=== PATIENT | male | born 1985 | race Caucasian/White ===

== ENCOUNTER 2023-08-12 07:15 | Day surgery (SDC) | payer OTHER ==
[2023-08-12] MEDS: LACTATED RINGERS 1,000 ML IV ONE ×3 (07:16→09:32)
--- NOTE | 2023-08-12 07:57 | ANESTHESIA ---
Pre-Anesthesia VS, & Labs - Diagnosis desires sterilization - Procedure elective sterilization Vital Signs: Temp Pulse Resp BP Pulse Ox O2 Flow Rate 36.7 C 72 20 127/86 H 100 0 08/12/23 07:31 08/12/23 07:31 08/12/23 07:31 08/12/23 07:31 08/12/23 07:31 08/12/23 07:31 Height: 5 ft 9 in Weight (kg): 112 kg Body Mass Index: 36.4 BMI Classification: Obese - NPO >8 hours Home Medications and Allergies Cholecalciferol [Vitamin D3] 1,000 units PO DAILY 06/17/23 Allergies/Adverse Reactions: Allergies Allergy/AdvReac Type Severity Reaction Status Date / Time No Known Drug Allergies Allergy Verified 06/17/23 11:09 Anes History & Medical History - Anesthetic History Anesthesia Complications: reports: No previous complications - Medical History Cardiovascular: reports: High cholesterol Pulmonary: reports: None Gastrointestinal: reports: None Urinary: reports: None Musculoskeletal: reports: None Endocrine/Autoimmune: reports: None Skin: reports: None Smoking Status: Former smoker Psychosocial: reports: Alcohol (few a week) Exam Dental: WNL Mouth Opening: Greater than 4 Fingerbreadths Neck Mobility: Normal Mallampati classification: II Thyromental Distance: greater than 6 cm Respiratory: Lungs clear Cardiovascular: Regular rate Plan Anesthesia Type: Total IV Consent for Procedure(s) Verified and Reviewed: Yes Code Status: Attempt Resuscitation ASA classification: 2-Mild systemic disease Is this case an emergency?: No
[2023-08-12] MEDS ORDERED: fentaNYL 100 MCG/2 ML VIAL IVP PRN (07:59)
[2023-08-12] MEDS ORDERED: HYDROmorphone 0.5 MG/0.5 ML SYRINGE IVP PRN (07:59)
[2023-08-12] MEDS ORDERED: METOCLOPRAMIDE 10 MG/2 ML VIAL IVP PRN (07:59)
[2023-08-12] MEDS ORDERED: ATROPINE ABBOJECT 1 MG/10 ML SYRINGE IVP PRN (07:59)
[2023-08-12] MEDS ORDERED: ONDANSETRON 4 MG/2 ML VIAL IVP PRN (07:59)
[2023-08-12] MEDS ORDERED: MORPHINE 2 MG/ML CARPUJECT IVP PRN (07:59)
[2023-08-12] MEDS ORDERED: ePHEDrine 50 MG/ML VIAL IVP PRN (07:59)
[2023-08-12] MEDS ORDERED: NALOXONE 0.4 MG/ML VIAL IVP PRN (07:59)
[2023-08-12] MEDS ORDERED: LACTATED RINGERS 1,000 ML IV SCH (08:00)
[2023-08-12] MEDS: LIDOCAINE 1% 50 ML MDV SUBQ ONE ×2 (08:34)
--- NOTE | 2023-08-12 09:05 | Discharge Plan ---
Discharge Plan Problem Reviewed?: Yes Disposition: 01 Home, Self Care Condition: Good Diet: Regular Activity Restrictions: Additional Comments (as instructed) Shower Restrictions: No Driving Restrictions: No Instruction Topics: Vasectomy No Scalpel No Smoking: If you smoke, Please STOP! Call for help.
--- NOTE | 2023-08-12 09:05 | OPERATIVE REPORT ---
Operative Report - General Procedure Date: 08/12/23 Planned Procedure: Bilateral vasectomy Pre-Op Diagnosis: elective sterilization Procedure Performed: Bilateral vasectomy Post Op Diagnosis: elective sterilization - Procedure Note Primary Surgeon: Kp Anesthesia Provider: BRONSON Davies Anesthesia Technique: General LMA Pathology: none Estimated Blood Loss (mL): 0 Findings: Tight right side - Other Other Information/Narrative: After informed consent was obtained the patient was brought to the OR and laid the supine position. Patient was anesthetized per anesthesia protocols and prepped draped in usual sterile fashion. A formal timeout was performed reconfirming the patient and procedure Local was instilled into the right hemiscrotum after isolating the vas deferens. Using a sharp mosquito we dissected the scrotal skin away and then used a loop grasper to identify the vas deferens and grasp it. This was quite challenging and eventually we actually had to make a second incision slightly more inferior to grasp of the vas better. After grasping the vas we incised the vas sheath and delivered the vas deferens itself. This was cauterized on both ends and a small segment was removed. The ends were suture-ligated with 4-0 chromic suture. A fascial interposition stitch was placed. The skin incisions were both closed with 4-0 chromic suture. The left side was then approached and again local was instilled and using a mosquito dissector we were able to gently open up the skin we identified the vas deferens using a loop grasper and then we were able to incise the vaginal sheath and identified the vas deferens which was then cauterized and divided. This was also suture-ligated. A fascial interposition stitch was placed. The skin was closed using 4-0 chromic suture. This include the procedure and the patient tolerated procedure well. All counts were correct
[2023-08-12] MEDS: HYDROcod/ACETAM 5/325 MG TABLET PO PRN (09:33)
--- NOTE | 2023-08-12 10:08 | ANESTHESIA POST OP EVALUATION ---
Anesthesia Post Eval - Post Anesthesia Eval Vitals: Last Vital Signs Temp 36.3 C L 08/12/23 09:30 Pulse 69 08/12/23 09:40 Resp 16 08/12/23 09:40 BP 125/86 H 08/12/23 09:40 Pulse Ox 99 08/12/23 09:40 O2 Flow Rate 0 08/12/23 07:31 CV Function Including HR & BP: Stable Pain Control: Satisfactory Nausea & Vomiting: Negative Mental Status: Baseline Respiratory Status: Airway Patent Hydration Status: Satisfactory Anesthesia Complications: None
[2023-08-12 10:13] VITALS: BP 125/86; O2SAT 99
== END 2023-08-12 07:16 | disposition home or self-care (01) ==
LOC: OR 07:15
PROVIDERS: ATTEND Urology
DX: Z30.2 Encounter for sterilization (principal); Z87.891 Personal history of nicotine dependence

== ENCOUNTER 2023-09-19 12:26 | Outpatient (CLI) | payer OTHER ==
--- NOTE | 2023-09-19 13:17 | Sleep Patient Instructions ---
Sleep Center Visit Summary - Patient Visit Information Reason for Visit: Initial consult for evaluation of sleep disordered breathing and other sleep issues. - Patient Instructions Instructions Attached: Sleep Study Additional Instructions: You will be completing a sleep study, either an in-lab polysomnography (PSG) or home sleep study (HST). You will follow-up in the sleep care office after the sleep study is completed to hear the results and talk about therapy, if needed. You will be called by our office staff to schedule this appointment, but you may contact us with any questions. - Clinic Information Contact: [facility] [address] [place] [address] [email or web address] T: [phone]
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
[2023-09-19 13:28] VITALS: BP 145/89; O2SAT 98
== END 2023-09-19 12:27 | disposition home or self-care (01) ==
LOC: SC 12:26
PROVIDERS: ATTEND Nurse Practitioner Family
DX: R06.83 Snoring (principal); R06.81 Apnea, not elsewhere classified; E66.9 Obesity, unspecified; Z68.38 Body mass index [BMI] 38.0-38.9, adult
CPT/HCPCS: 99203; 99212

== ENCOUNTER 2023-10-07 20:17 | Outpatient (CLI) | payer OTHER | END 2023-10-07 20:18 | disposition home or self-care (01) | LOC: SC 20:17 | PROVIDERS: ATTEND Nurse Practitioner Family | DX: G47.33 Obstructive sleep apnea (adult) (pediatric) (principal); E66.9 Obesity, unspecified; Z68.37 Body mass index [BMI] 37.0-37.9, adult | CPT/HCPCS: 95810 ==

== ENCOUNTER 2023-10-23 11:16 | Outpatient (CLI) | payer OTHER ==
--- NOTE | 2023-10-23 11:40 | Sleep Patient Instructions ---
Sleep Center Visit Summary - Patient Visit Information Reason for Visit: Sleep study follow-up - Patient Instructions Instructions Attached: CPAP Additional Instructions: You are being started on CPAP therapy with pressure setting at 4-15 cmH2O. You will need to call the sleep care office to set up your follow up once you have your CPAP machine to check compliance and response to therapy at that time. You may call the office with any concerns about pressure feeling too low or too much for adjustment, if needed. You should contact DME supplier for any questions or concerns about mask or equipment. Please call office to schedule a follow up appointment in the sleep care office one month after obtaining new device. - Clinic Information Contact: [facility] [address] [place] [address] [email or web address] T: [phone]
--- NOTE | 2023-10-23 11:44 | SLEEP CARE CONSULTATION ---
Information from patient questionnaire entered by Lila Meza. I have reviewed and concur with the information entered by Lila Meza. This document represents the service I personally performed and the decisions made by me, Mariana Amador ARNP. History of Present Illness Service Date and Time: 10/23/2023 1116 Initial [place] Sleepiness Scale score: 7 (09/18/23) Current [place] Sleepiness Scale score: 14 (10/23/23) Additional HPI information: GIANCARLO RAYMOND returns for follow up and results of the recently performed polysomnography. The sleep study done on 10/07/2023 showed moderate obstructive sleep apnea with an average AHI of 19 and mariana oxygen saturation of 81%. I explained the pathophysiology behind obstructive sleep apnea. We then spent quite a bit of time discussing different treatment options. For mild obstructive sleep apnea, surgery and oral appliance are alternatives to nasal CPAP therapy but in moderate or severe cases, nasal CPAP is the most effective and reliable treatment. I reviewed the impact of weight changes on sleep apnea and strongly recommended losing weight. After some discussion, the patient opted to go with the nasal CPAP therapy. Nasal autoCPAP set at 4-15 cmH20 will be ordered with rationale explained. A manual titration study will be ordered if unable to find optimal pressure with office adjustments. I explained how CPAP machine works and what to expect when using the machine. Using CPAP every night in order to get used to it was emphasized. Patient advised to put CPAP mask on before getting into bed so as not to fall asleep without CPAP. To assist acclimation to CPAP use, it could also be used for a short time during day while reading or watching TV. The patient was instructed to call the CPAP supplier to discuss any mechanical problem that may occur. If the mask given is uncomfortable or is difficult to keep on through the night even with adjustment, contact the CPAP supplier as many will replace with another mask style if notified before 30 days. If snoring or perceives is not getting enough air or too much air from the machine, notify this office. Patient counseled not drink alcohol less than 4 hours before bedtime as it can increase snoring and apnea. Patient was cautioned about risks of drowsy driving until sleepiness symptoms resolve. Patient denies drowsy driving. Sleep Study - Results Type of Sleep Study: Polysomnography (COMPLETED 10/07/23) Prior sleep studies: No Polysomnography/Home Sleep Study results: IMPRESSION: The quality of the study is good. The patient had normal sleep efficiency. The sleep architecture was abnormal for sleep fragmentation and reduced amount of time spent in slow wave sleep (N3). Respiratory monitoring showed moderate obstructive sleep apnea-hypopnea (AHI = 19.0) associated with frequent arousals, oxyhemoglobin desaturation and mild hypoxia (mariana oxygen saturation of 81%). The respiratory events occurred mainly during supine sleep (supine AHI = 25.6; non-supine = 10.23). Snore was moderate in intensity. There was no significant periodic leg movement of sleep. Cardiac rhythm was normal sinus rhythm with frequent premature atrial contractions. No abnormal behavior (parasomnia) observed during the night. Allergies and Home Medications Known drug allergies: No Drug allergies reviewed: Yes Home medication list reviewed: Yes (no changes) Allergy and home medication list: Allergies No Known Drug Allergies Allergy Review of Systems Review of systems same as previous: Yes (NO CHANGE) Physical Exam Vital signs obtained and entered by: LILA Medina MA Blood Pressure: 127/81 (LEFT ARM) Cuff size: long Heart Rate: 83 O2 Saturation: 96 Height: 5 ft 9 in Weight: 257 lb 9.6 oz Body Mass Index: 38.0 BMI Classification: Obese Impression and Plan 1. Obstructive Sleep Apnea-Hypopnea Syndrome, moderate, with lowest oxygen saturation of 81%. Obviously this is the cause of the patients symptoms of unrefreshed sleep, and excessive daytime sleepiness. As mentioned above, the patient will be started on nasal autoCPAP therapy with pressure set at 4-15 cmH2 O. A manual titration study will be completed if unable to find optimal treatment pressure with office adjustments. Compliance guidelines also reviewed. A copy of compliance guidelines will be given for reference at check out. Because the apnea is more severe supine, I instructed to avoid sleeping supine using pillow positioning until able to start CPAP use. 2. Hypoxemia, mild, with a mariana oxygen saturation of 81% and 10.9 minutes spent under 90%. The baseline oxygen saturation was normal with an average oxygen saturation of 93%. 3. Obesity, unspecified. Currently patients BMI is 38. Obesity increases the risk of apnea, CPAP pressure requirements and overall health risks especially cardiovascular and diabetes. Thus patient is advised to lose weight. * Nasal auto CPAP therapy, pressure at 4-15 cm H2O. * Attempt to lose weight. * Avoid alcohol consumption near bedtime. * Avoid supine sleep until using CPAP. * The patient is again cautioned about driving until sleepiness completely resolves. * Return one month after CPAP obtained. I will assess response to therapy and compliance at that time. Counseling Topics: Weight loss health impact Prescriptions: Auto CPAP Visit Type: In Office Time Spent with Patient (minutes): 23 Provider Statement: I spent 100% of the Face to Face Visit with the patient with greater than 50% spent counseling the patient and coordination of care.
[2023-10-23 11:45] VITALS: BP 127/81; O2SAT 96
== END 2023-10-23 11:17 | disposition home or self-care (01) ==
LOC: SC 11:16
PROVIDERS: ATTEND Nurse Practitioner Family
DX: G47.33 Obstructive sleep apnea (adult) (pediatric) (principal); R09.02 Hypoxemia; E66.9 Obesity, unspecified; Z68.38 Body mass index [BMI] 38.0-38.9, adult
CPT/HCPCS: 99212; 99213